=== PATIENT | female | born 1990 | race Caucasian/White ===

== ENCOUNTER 2021-03-13 02:48 | Emergency (ER) | payer MEDICAID ==
[~2021-03-13] VITALS: Ht 157.5 cm; Wt 94.1 kg
[2021-03-13 03:31] VITALS: BP 129/82
[2021-03-13] MEDS ORDERED: KETOROLAC 60 MG/2 ML VIAL. IM ONE (04:00)
[2021-03-13] MEDS ORDERED: HYDROmorphone 2 MG/ML VIAL IM ONE (04:00)
--- NOTE | 2021-03-13 04:04 | ED.ADGEN ---
Past Medical History Past Medical History: Anxiety, Depression, Other Additional Past Medical Histor: Chronic low back pain Past Surgical History: Cholecystectomy, Tubal ligation Smoking Status: Current Every Day Smoker Alcohol Use: Occasionally General Adult EDM: Chief Complaint: BACK PAIN - NO INJURY HPI: HPI: Patient is a 30 year old female coming in for worsening back pain. Patient states she woke up and her low back pain rating up to her thoracic spine. States she has a baseline sciatica that is bilateral but worse on the right. Take her home medications without improvement. Denies any fevers, chills, night sweats, recent weight loss or gain, history of IV drug use, bowel or bladder dysfunction. No weakness or tingling in extremities other than the sciatica. Family history of multiple cancers. 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 Review of Systems: Review of Systems: All other systems within normal limits except for as noted in the HPI Current Medications: Current Medications Medications (Trade) Dose Ordered Sig/Justin Start Time Stop Time Status Last Admin Dose Admin Hydromorphone HCl (Dilaudid) 2 mg 1X ONCE 03/13/21 04:00 03/13/21 04:01 DC 03/13/21 04:29 2 MG Ketorolac Tromethamine (Toradol Im) 60 mg 1X ONCE 03/13/21 04:00 03/13/21 04:01 DC 03/13/21 04:30 60 MG Allergies: Allergies: Allergies Coded Allergies Type Severity Reaction Last Updated Verified fentanyl Adverse Reaction Unknown Palpitations 03/13/21 Yes Physical Exam: PE: Constitutional: Well developed, well nourished, no acute distress, non-toxic appearance. [] HENT: Normocephalic, atraumatic, bilateral external ears normal, nose normal. [] Eyes: PERRLA, conjunctiva normal, no discharge. [] Neck: No rigidity, supple, no stridor. [] Cardiovascular: Regular rate and rhythm, brisk cap refill [] Lungs & Thorax: Non labored symmetric respirations, no tachypnea or respiratory distress [] Abdomen: Soft, nondistended. Skin: Warm, dry, no erythema, no rash. [] Back: Unremarkable, no step-off or deformity, tenderness along lumbar and thoracic spine Extremities: No deformities, range of motion grossly intact, no lower extremity edema [] Neurologic: Alert and oriented X 3, no focal deficits noted. [] Psychologic: Affect normal, judgement normal, mood normal. [] Current Patient Data: Labs: Laboratory Tests Test 03/13/21 04:38 03/13/21 04:41 Urine Collection Type Unknown Urine Color Yellow Urine Clarity Turbid Urine pH 5.5 (<5.0-8.0) Urine Specific [place] >=1.030 (1.000-1.030) Urine Protein Negative mg/dL (NEG-TRACE) Urine Glucose (UA) Negative mg/dL (NEG) Urine Ketones (Stick) Negative mg/dL (NEG) Urine Blood Trace (NEG) Urine Nitrite Negative (NEG) Urine Bilirubin Negative (NEG) Urine Urobilinogen Dipstick 0.2 mg/dL (0.2 mg/dL) Urine Leukocyte Esterase Negative (NEG) Urine RBC 3-5 /HPF (0-2) Urine WBC 1-4 /HPF (0-4) Urine Squamous Epithelial Cells Many /LPF Urine Bacteria Few /HPF (0-FEW) Urine Mucus Mod /LPF POC Urine HCG, Qualitative Hcg negative (Negative) Vital Signs: Vital Signs Date Time Temp Pulse Resp B/P (MAP) Pulse Ox O2 Delivery O2 Flow Rate FiO2 03/13/21 04:29 18 99 Room Air 03/13/21 03:31 98.0 98 129/82 (98) 98.0 EKG: EKG: [] Heart Score: C/O Chest Pain: No Risk Factors: Risk Factors: DM, Current or recent (<one month) smoker, HTN, HLP, family history of CAD, obesity. Risk Scores: Score 0 - 3: 2.5% MACE over next 6 weeks - Discharge Home Score 4 - 6: 20.3% MACE over next 6 weeks - Admit for Clinical Observation Score 7 - 10: 72.7% MACE over next 6 weeks - Early Invasive Strategies Radiology/Procedures: Radiology/Procedures: Three view thoracic spine History: Pain AP, swimmer's projection and lateral views of the thoracic spine were obtained. There is mild dextro convex scoliosis of the upper thoracic spine and there is mild kyphosis of the lower thoracic spine. There is no loss of vertebral body stature. Intervertebral disc heights are preserved. Impression: Scoliosis. No acute findings. End Impression Three view lumbosacral spine History: Pain AP, coned-down lateral and lateral views of the lumbosacral spine were obtained. The vertebral bodies are aligned. There is no loss of vertebral body stature. There is mild loss of intervertebral disc height and marginal spurring of the at endplates at L1-L2. Impression: Chronic discogenic disease at L1-L2. No acute findings. [] Course & Med Decision Making: Course & Med Decision Making Pertinent Labs and Imaging studies reviewed. (See chart for details) [] Dragon Disclaimer: Dragon Disclaimer: This electronic medical record was generated, in whole or in part, using a voice recognition dictation system. Departure Departure Impression: Primary Impression: Acute exacerbation of chronic low back pain Additional Impression: Scoliosis Disposition: HOME / SELF CARE / HOMELESS Condition: STABLE Referrals: JUDD MCKEE MD (PCP) Patient Instructions: Back Pain, Adult Scripts Hydrocodone Bit/Acetaminophen (HYDROCODONE-APAP 5-325 ) 1 Tab Tablet 1 TAB PO PRN Q6HRS PRN for PAIN for 2 Days, #8 TAB 0 Refills Prov: JOSE CARLOS MCMAHAN MD 03/13/21 Problem Qualifiers JOSE CARLOS MCMAHAN MD March 13, 2021 04:04
[2021-03-13 04:57] LABS: BILIRUBIN,URINE NEGATIVE (NEG); CLARITY,URINE TURBID; COLOR,URINE YELLOW; NITRITE,URINE NEGATIVE (NEG); PH,URINE 5.5 (<5.0-8.0); PROTEIN,URINE NEGATIVE (NEG-TRACE); UROBILINOGEN,URINE 0.2 mg/dL (0.2 mg/dL)
--- NOTE | 2021-03-13 05:10 | RAD ---
Three view thoracic spine History: Pain AP, swimmer's projection and lateral views of the thoracic spine were obtained. There is mild dextro convex scoliosis of the upper thoracic spine and there is mild kyphosis of the l ower thoracic spine. There is no loss of vertebral body stature. Intervertebral disc heights are pres erved. Impression: Scoliosis. No acute findings. End Impression Three view lumbosacral spine History: Pain AP, coned-down lateral and lateral views of the lumbosacral spine were obtained. The vertebral bodies are aligned. There is no loss of vertebral body stature. There is mild loss of i ntervertebral disc height and marginal spurring of the at endplates at L1-L2. Impression: Chronic discogenic disease at L1-L2. No acute findings. End Impression Electronically signed by: Son Puri III, MD (03/13/2021 5:08 AM) [facility]
[2021-03-13 05:25] LABS: BACTERIA,URINE FEW /HPF (0-FEW)
[2021-03-13] MEDS ORDERED: HYDR-2761 PO (05:35)
[2021-03-13] MEDS ORDERED: ORPHENADRINE CITRATE 60 MG/2 ML VIAL. IM ONE (05:45)
== END 2021-03-13 06:26 | disposition home or self-care (01) ==
LOC: ER 02:48
DX: G89.29 Other chronic pain (principal); M54.5 Low back pain; M41.84 Other forms of scoliosis, thoracic region; F17.200 Nicotine dependence, unspecified, uncomplicated; Z90.49 Acquired absence of other specified parts of digestive tract; Z98.51 Tubal ligation status; Z88.4 Allergy status to anesthetic agent
CPT/HCPCS: 72072; 72100; 81001; 81025; 96372; 99284; J1170; J1885; J2360

== ENCOUNTER → 2021-04-02 | Outpatient (CLI) | payer MEDICAID ==
[2021-03-13 03:31] VITALS: BP 129/82
[~2021-04-02] MED LIST: HYDR-2761 PO
--- NOTE | 2021-04-02 13:38 | KCIC ---
MR LUMBAR SPINE WO [id number] History: Low back pain with left lumbar radiculopathy. Technique: Multiplanar, multi sequential MR imaging was performed of the lumbar spine without and wit h intravenous contrast. Comparison: None Findings: Normal vertebral body height and alignment. No fracture. Interosseous hemangioma at L2 vertebral body . Small Schmorl's nodes T11, T12, L1 and L2 vertebral bodies. Conus terminates at the normal location . No evidence of nerve root clumping. L1-L2: Disc desiccation with disc space narrowing. Small left lateral disc protrusion, likely encroac saran left L2 transiting nerve root. No canal stenosis. Mild left neuroforaminal narrowing. L2-L3: No canal or neuroforaminal narrowing. L3-L4: No canal or neuroforaminal narrowing. L4-L5: No canal or neuroforaminal narrowing. L5-S1: Mild bilateral facet arthropathy. No canal or neuroforaminal narrowing. Impression: 1. Left lateral disc protrusion at L1-L2, likely encroaching left L5 transiting nerve root. 2. Mild bilateral facet arthropathy at L5-S1. 3. No canal stenosis. Electronically signed by: Goldy Villegas MD (04/02/2021 1:36 PM) [id number]
== END ==
LOC: KCIC MRI 10:37
PROVIDERS: ATTEND Family Medicine
DX: M47.27 Other spondylosis with radiculopathy, lumbosacral region (principal)
CPT/HCPCS: 72148